=== PATIENT | female | born 1980 | race Caucasian/White ===

== ENCOUNTER 2020-05-25 09:48 | Outpatient (REF) | payer OTHER, SELFPAY | END 2020-05-25 09:49 | disposition home or self-care (01) | LOC: HO.LAB 09:48 | PROVIDERS: PCP Internal Medicine; Visit Provider Internal Medicine | DX: Z20.828 Contact with and (suspected) exposure to other viral communicable diseases (principal) | CPT/HCPCS: 87635 ==

== ENCOUNTER 2021-02-07 11:30 | Outpatient (REF) | payer OTHER, SELFPAY ==
[2021-02-07 17:31] LABS: CT PCR NOT DETECTED (Not Detect.); NG PCR NOT DETECTED (Not Detect.)
[2021-02-08 09:08] LABS: BV Int Neg Control Negative (Negative); BV Int Pos Control Positive (Positive)
[2021-02-10 01:26] LABS: HPV mRNA E6/E7 rflx Not Detected (Not Detected)
== END 2021-02-07 11:31 | disposition home or self-care (01) ==
LOC: HO.LAB 11:30
PROVIDERS: PCP Internal Medicine; Visit Provider Advanced Practice Midwife
DX: Z01.411 Encounter for gynecological examination (general) (routine) with abnormal findings (principal); Z11.51 Encounter for screening for human papillomavirus (HPV); Z11.3 Encounter for screening for infections with a predominantly sexual mode of transmission; N94.6 Dysmenorrhea, unspecified; N85.2 Hypertrophy of uterus; N92.0 Excessive and frequent menstruation with regular cycle; Z20.2 Contact with and (suspected) exposure to infections with a predominantly sexual mode of transmission
CPT/HCPCS: 87480; 87491; 87510; 87591; 87624; 87660; 88142

== ENCOUNTER 2021-02-27 11:21 | Outpatient (REF) | payer OTHER, SELFPAY ==
--- NOTE | ~2021-02-27 | US_ITS ---
EXAMINATION: ULTRASOUND PELVIS AND TRANSVAGINAL. CLINICAL INFORMATION: Transabdominal and transvaginal imaging of pelvis is performed. COMPARISON: Ultrasound pelvis 10/23/2018 TECHNIQUE: Transabdominal and transvaginal imaging of pelvis was performed. FINDINGS: The uterus is anteverted measuring 10.3 cm in length, 5.5 cm AP and 5.8 cm in transverse dimension. Endometrial thickness is 1.0 cm. The uterus is homogeneous in echotexture. No focal lesion seen. The right ovary measures 3.2 x 3.1 x 2.3 cm and volume 12 mL. There is no focal lesion seen. Previously right ovary measured 3.0 x 2.2 x 3.5 cm. Left ovary measures 2.7 x 2.5 x 1.7 cm volume 6.0 mL. Previously left ovary measured 2.8 x 3.1 x 1.8 cm. There is no free fluid in the pelvis. US/US pelvic and transvaginal IMPRESSION: Unremarkable uterus and ovaries. No free fluid in the pelvis.
== END 2021-02-27 11:22 | disposition home or self-care (01) ==
LOC: HO.US 11:21
PROVIDERS: PCP Internal Medicine; Visit Provider Advanced Practice Midwife
DX: N94.6 Dysmenorrhea, unspecified (principal); N85.2 Hypertrophy of uterus; N92.0 Excessive and frequent menstruation with regular cycle
CPT/HCPCS: 76830; 76856

== ENCOUNTER → 2021-03-06 13:43 | Outpatient (BNVA) | payer OTHER, SELFPAY | PROVIDERS: Visit Provider Advanced Practice Midwife ==

== ENCOUNTER 2021-03-14 23:19 | Emergency (ER) | payer OTHER, SELFPAY ==
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
[2021-03-14 23:33] VITALS: BP 130/96; PULSE 98; RESP 20; TEMP 36; O2SAT 98; BMI 23.9
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
[2021-03-15] MEDS: Ibuprofen 600 MG TABLET PO (01:37)
[2021-03-15] MEDS: oxyCODONE HCl Immed Release 5 MG TABLET PO (01:48)
== END 2021-03-15 01:49 | disposition home or self-care (01) ==
PROVIDERS: Emergency Provider Emergency Medicine; PCP Internal Medicine
DX: S02.2XXA Fracture of nasal bones, initial encounter for closed fracture (principal); M54.2 Cervicalgia; G44.309 Post-traumatic headache, unspecified, not intractable; Y04.8XXA Assault by other bodily force, initial encounter; Y93.9 Activity, unspecified; Y92.009 Unspecified place in unspecified non-institutional (private) residence as the place of occurrence of the external cause; Y99.9 Unspecified external cause status; F17.210 Nicotine dependence, cigarettes, uncomplicated; Z71.6 Tobacco abuse counseling; Z79.899 Other long term (current) drug therapy
CPT/HCPCS: 70450; 70486; 72125; 99283

== ENCOUNTER 2021-05-16 09:50 | Outpatient (REF) | payer OTHER, SELFPAY ==
--- NOTE | ~2021-05-16 | MM_ITS ---
EXAMINATION: MM SCREENING DIGITAL BREAST TOMOSYNTHESIS, BILATERAL CLINICAL INFORMATION: Screening. Asymptomatic. Age 41. No prior breast imaging. No known family history breast cancer. The lifetime risk of breast cancer based on the Tyrer-Cuzick Model is 8%. COMPARISON: None (current study represents initial baseline exam). TECHNIQUE: Digital breast tomosynthesis is performed in both the craniocaudal and mediolateral oblique views along with computer-aided detection (CAD). Synthesized 2D images are generated from the tomosynthesis. FINDINGS: There are scattered areas of fibroglandular density (ACR BI-RADS breast composition Category b). There are no significant masses, abnormal calcifications, or other abnormalities. Breast tissue composition borders on heterogeneously dense in the upper outer quadrants. The axilla and skin contours are unremarkable. MM/MM tomosynthesis screening BI IMPRESSION: No mammographic evidence of malignancy. ASSESSMENT: BI-RADS 1: Negative RECOMMENDATION: Routine annual mammography screening. This patient's information was entered into a reminder system with a target due date for their next mammogram.
== END 2021-05-16 09:51 | disposition home or self-care (01) ==
LOC: HO.MAMMO 09:50
PROVIDERS: PCP Internal Medicine; Visit Provider Advanced Practice Midwife
DX: Z12.31 Encounter for screening mammogram for malignant neoplasm of breast (principal)
CPT/HCPCS: 77063; 77067

== ENCOUNTER 2022-06-01 11:04 | Outpatient (REF) | payer OTHER, SELFPAY ==
--- NOTE | ~2022-06-01 | MM_ITS ---
EXAMINATION: MM SCREENING DIGITAL BREAST TOMOSYNTHESIS, BILATERAL CLINICAL INFORMATION: Screening. Asymptomatic. The lifetime risk of breast cancer based on the Tyrer-Cuzick Model is 8%. COMPARISON: Mammography: May 16, 2021 TECHNIQUE: Digital breast tomosynthesis is performed in both the craniocaudal and mediolateral oblique views along with computer-aided detection (CAD). Synthesized 2D images are generated from the tomosynthesis. FINDINGS: The breasts are heterogeneously dense, which may obscure small masses (ACR BI-RADS breast composition Category c). There are no significant masses, abnormal calcifications, or other abnormalities. MM/MM tomosynthesis screening BI IMPRESSION: No significant changes from prior exam. ASSESSMENT: BI-RADS 1: Negative RECOMMENDATION: Routine annual mammography screening. This patient's information was entered into a reminder system with a target due date for their next mammogram.
== END 2022-06-01 11:05 | disposition home or self-care (01) ==
LOC: HO.MAMMO 11:04
PROVIDERS: PCP Internal Medicine; Visit Provider Internal Medicine
DX: Z12.31 Encounter for screening mammogram for malignant neoplasm of breast (principal)
CPT/HCPCS: 77063; 77067

== ENCOUNTER → 2022-11-19 10:53 | Outpatient (BNVA) | payer OTHER, SELFPAY | PROVIDERS: Referring Provider Internal Medicine; Visit Provider Surgery | DX: L02.412 Cutaneous abscess of left axilla (principal) | CPT/HCPCS: 10060; 10061; 99202 ==

== ENCOUNTER → 2022-12-03 13:48 | Outpatient (BNVA) | payer OTHER, SELFPAY | PROVIDERS: Visit Provider Surgery ==

== ENCOUNTER → 2022-12-26 10:03 | Outpatient (BNVA) | payer OTHER, SELFPAY | PROVIDERS: Visit Provider Surgery | DX: L02.412 Cutaneous abscess of left axilla (principal) | CPT/HCPCS: 99212 ==

== ENCOUNTER 2023-12-17 12:29 | Emergency (ER) | payer OTHER, SELFPAY ==
--- NOTE | ~2023-12-17 | XR_ITS ---
EXAMINATION: XR CHEST CLINICAL INFORMATION: Shortness of breath and chest pain COMPARISON: 01/27/2018 TECHNIQUE: 2 views of the chest were obtained. FINDINGS: No significant abnormality is noted involving the heart, lungs, mediastinum, bony thorax or soft tissues. XR/XR chest 2V IMPRESSION: Unremarkable examination.
--- NOTE | 2023-12-17 12:31 | ECG_ITS ---
Test Reason : CP Blood Pressure : / mmHG Vent. Rate : 080 BPM Atrial Rate : 080 BPM P-R Int : 136 ms QRS Dur : 084 ms QT Int : 404 ms P-R-T Axes : 037 023 028 degrees QTc Int : 465 ms Normal sinus rhythm Normal ECG When compared with ECG of 31-AUG-2015 12:37, No significant change was found Referred By: Generic ED Physician Electronically Signed By:Ramin Aguilar
[2023-12-17 12:57] VITALS: BP 109/81; PULSE 73; RESP 18; TEMP 37; O2SAT 100; BMI 29.4
--- NOTE | 2023-12-17 12:58 | ED.CHESTPAIN ---
HPI - Chest Pain General Chief Complaint: Chest Pain Stated Complaint: chest pain Related Data Home Medications ?Medication ?Instructions ?Recorded ?Confirmed No Known Home Meds 03/06/21 12/26/22 Allergies Allergy/AdvReac Type Severity Reaction Status Date / Time No Known Allergies Allergy Verified 12/17/23 13:01 [No Known Allergies*] [facility] Past Medical History Medical History Abscess of left axilla Surgical History History of tubal ligation Family History Family History Father Colon cancer Mother Asthma Stomach cancer Sister Throat cancer Social History Social History Alcohol intake: current Alcohol intake frequency: holidays/special occasions only Patient Tobacco Use Status: Current everyday Tobacco user Tobacco use type: Cigarette Cigarettes Per Day: 10 Advance Directives: No Advance Directives Information Provided: No Gender identity: Female Physical Exam Vital Signs: Vital Signs: Last Vital Signs Temp 98.6 F 12/17/23 12:57 Pulse 73 12/17/23 12:57 Resp 18 12/17/23 12:57 BP 109/81 12/17/23 12:57 Pulse Ox 100 12/17/23 12:57 O2 Del Method Room Air 12/17/23 12:57 BMI result Body Mass Index 29.4 Course Course Course Narrative: This is a Rapid Medical Examination (RME) performed by Everette Driscoll PA-C in triage. Full HPI, ROS, assessment and treatment plan per primary provider in the Main ED. 43 yo female with no PMH except smoking, presenting with chest pain for past 2 months. She describes the pain as sharp, stabbing, radiating down breast, with associated SOB. She rates the pain as an 8/10. Has not taken any medication to alleviate the pain. She describes the pain as reproducible with palpation. On examination, patient is in no distress. Speaking in complete sentences. Lungs are clear to auscultation bilaterally. CV w/ RRR. Vital signs are stable. Left lateral chest wall is mildly tender without any skin changes noted. Normal inspection of her abdomen. No lower extremity edema. Low suspicion for ACS, most likely musculoskeletal in nature. Plan: EKG, chest x-ray, labs Reevaluation(s) Reevaluation #1: Patient eloped from the emergency department prior to completion of workup. Medical Decision Making Lab Data 12/17/23 13:12 12/17/23 13:12 Labs: Lab Results 12/17/23 Range/Units 13:12 WBC 12.8 H (4.8-10.8) X10*3/uL RBC 3.89 L (4.20-5.50) X10*6/uL Hgb 11.8 L (12.0-16.0) g/dl Hct 35.2 L (37.0-47.0) % MCV 90.5 (80.0-98.0) fL MCH 30.3 (27.0-33.0) pg MCHC 33.5 (31.0-35.0) g/dl RDW 15.1 (11.0-16.0) % Plt Count 277 (160-400) X10*3/uL MPV 10.2 (9.4-12.3) fL Immature Gran % (Auto) 0.9 H (0.0-0.4) % Neut % (Auto) 58.2 (45-73) % Lymph % (Auto) 28.9 (20-40) % [place] % (Auto) 8.3 (2-11) % Eos % (Auto) 3.1 (0-4) % Baso % (Auto) 0.6 (0-2) % Lymph # (Auto) 3.7 (1.2-4.9) X10*3/uL [place] # (Auto) 1.1 (0.1-1.2) X10*3/uL Eos # (Auto) 0.4 (0.0-0.4) X10*3/uL Baso # (Auto) 0.1 (0.0-0.2) X10*3/uL Abs Immat Gran (auto) 0.12 H (0.00-0.03) X10*3/uL Absolute Neuts (auto) 7.4 (2.0-8.3) x10*3/uL Absolute Nucleated RBC 0.000 (0.0-0.012) X10*3/uL Nucleated RBC % (auto) 0.0 (0.0-0.2) /100WBC Sodium 138 (135-145) mmol/L Potassium 3.8 (3.3-5.1) mmol/L Chloride 109 H (96-108) mmol/L Carbon Dioxide 19 L (22-29) mmol/L Anion Gap 14 (12-20) BUN 6 L (9-16) mg/dL Creatinine 0.68 (0.5-1.4) mg/dL Estim Creat Clear Calc 108.7 Estimated GFR > 60 Random Glucose 81 (60-115) mg/dL Calcium 9.2 (8.4-10.2) mg/dL Magnesium 2.0 (1.6-2.6) mg/dL Total Bilirubin 0.5 (0.0-1.0) mg/dL Direct Bilirubin 0.2 (0.0-0.5) mg/dL AST 15 (5-31) U/L ALT 15 (0-31) U/L Alkaline Phosphatase 70 (39-117) U/L Troponin I High Sens < 2.7 (<3.5-17.0) ng/L Total Protein 7.2 (6.5-8.0) g/dL Albumin 4.1 (3.5-5.0) g/dL Discharge Plan Discharge Clinical Impression: Chest pain Patient Disposition: Left W/O Completing Treatment Prescriptions: No Action No Known Home Meds Discharge Date/Time: 12/17/23 19:43
[2023-12-17 13:17] LABS: MANUAL DIFF FLAG NO
[2023-12-17 13:18] LABS: Basophils Absolute Auto 0.1 X10*3/uL (0.0-0.2); Basophils Percent Auto 0.6 % (0-2); Eosinophils Absolute Auto 0.4 X10*3/uL (0.0-0.4); Eosinophils Percent Auto 3.1 % (0-4); Hematocrit 35.2 % (37.0-47.0); Hemoglobin 11.8 g/dl (12.0-16.0); Imm Gran Abs Auto 0.12 X10*3/uL (0.00-0.03); Imm Gran Pct Auto 0.9 % (0.0-0.4); Lymphocytes Absolute Auto 3.7 X10*3/uL (1.2-4.9); Lymphocytes Percent Auto 28.9 % (20-40); Mean Corpuscular HGB Conc 33.5 g/dl (31.0-35.0); Mean Corpuscular Hemoglobin 30.3 pg (27.0-33.0); Mean Corpuscular Volume 90.5 fL (80.0-98.0); Mean Platelet Volume 10.2 fL (9.4-12.3); Monocytes Absolute Auto 1.1 X10*3/uL (0.1-1.2); Monocytes Percent Auto 8.3 % (2-11); Neutrophils Absolute Auto 7.4 x10*3/uL (2.0-8.3); Neutrophils Percent Auto 58.2 % (45-73); Platelet Count 277 X10*3/uL (160-400); Red Blood Count 3.89 X10*6/uL (4.20-5.50); Red Cell Distribution Width 15.1 % (11.0-16.0); White Blood Count 12.8 X10*3/uL (4.8-10.8)
[2023-12-17 13:33] LABS: Alanine Aminotransferase 15 U/L (0-31); Albumin Level 4.1 g/dL (3.5-5.0); Alkaline Phosphatase 70 U/L (39-117); Anion Gap 14 (12-20); Aspartate Amino Transferase 15 U/L (5-31); Bilirubin Direct 0.2 mg/dL (0.0-0.5); Bilirubin Total 0.5 mg/dL (0.0-1.0); Blood Urea Nitrogen 6 mg/dL (9-16); Calcium 9.2 mg/dL (8.4-10.2); Carbon Dioxide 19 mmol/L (22-29); Chloride 109 mmol/L (96-108); Creatinine Clr Calc Pharmacy 108.7; Estimated Glomerular Filt Rate > 60; Glucose Random 81 mg/dL (60-115); Potassium 3.8 mmol/L (3.3-5.1); Sodium 138 mmol/L (135-145); Total Protein 7.2 g/dL (6.5-8.0)
[2023-12-17 13:41] LABS: Troponin-I High Sensitivity < 2.7 ng/L (<3.5-17.0)
== END 2023-12-17 19:43 | disposition left against medical advice (07) ==
LOC: HO.ED 19:40
PROVIDERS: Physician Assistant; Emergency Provider Emergency Medicine
DX: R07.9 Chest pain, unspecified (principal); F17.210 Nicotine dependence, cigarettes, uncomplicated
CPT/HCPCS: 36415; 71046; 80048; 80076; 83735; 84484; 85025; 93005; 99283

== ENCOUNTER → 2023-12-17 12:31 | Outpatient (BNV) | payer OTHER, SELFPAY | PROVIDERS: Visit Provider Internal Medicine Cardiovascular Disease | DX: R07.9 Chest pain, unspecified (principal) | CPT/HCPCS: 93010 ==

== ENCOUNTER 2024-01-02 10:08 | Emergency (ER) | payer OTHER, SELFPAY ==
--- NOTE | 2024-01-02 | ECG_ITS ---
Test Reason : CP Blood Pressure : / mmHG Vent. Rate : 098 BPM Atrial Rate : 098 BPM P-R Int : 132 ms QRS Dur : 074 ms QT Int : 364 ms P-R-T Axes : 043 027 023 degrees QTc Int : 464 ms Normal sinus rhythm Possible Left atrial enlargement Borderline ECG When compared with ECG of 17-DEC-2023 12:33, No significant change was found Referred By: Generic ED Physician Electronically Signed By:BRANDI AMBROCIO MD
--- NOTE | ~2024-01-02 | XR_ITS ---
EXAMINATION: XR CHEST CLINICAL INFORMATION: Left-sided pain COMPARISON: 12/17/2023 TECHNIQUE: 2 views of the chest were obtained. FINDINGS: Lungs clear. No pneumothorax. Heart and pulmonary vessels are normal. No pleural effusion. XR/XR chest 2V IMPRESSION: No active disease.
[2024-01-02 10:37] VITALS: BP 142/99; PULSE 90; RESP 18; TEMP 36.6; O2SAT 99; BMI 29.1
[2024-01-02 10:52] LABS: MANUAL DIFF FLAG NO
[2024-01-02 10:55] LABS: Basophils Absolute Auto 0.1 X10*3/uL (0.0-0.2); Basophils Percent Auto 0.6 % (0-2); Eosinophils Absolute Auto 0.3 X10*3/uL (0.0-0.4); Eosinophils Percent Auto 2.5 % (0-4); Hematocrit 35.8 % (37.0-47.0); Hemoglobin 11.9 g/dl (12.0-16.0); Imm Gran Abs Auto 0.14 X10*3/uL (0.00-0.03); Lymphocytes Absolute Auto 3.3 X10*3/uL (1.2-4.9); Lymphocytes Percent Auto 24.8 % (20-40); Mean Corpuscular HGB Conc 33.2 g/dl (31.0-35.0); Mean Corpuscular Hemoglobin 30.3 pg (27.0-33.0); Mean Corpuscular Volume 91.1 fL (80.0-98.0); Mean Platelet Volume 10.7 fL (9.4-12.3); Monocytes Percent Auto 7.4 % (2-11); Neutrophils Absolute Auto 8.5 x10*3/uL (2.0-8.3); Neutrophils Percent Auto 63.7 % (45-73); Platelet Count 270 X10*3/uL (160-400); Red Blood Count 3.93 X10*6/uL (4.20-5.50); Red Cell Distribution Width 14.4 % (11.0-16.0); White Blood Count 13.4 X10*3/uL (4.8-10.8)
[2024-01-02 11:06] LABS: Anion Gap 12 (12-20); Blood Urea Nitrogen 10 mg/dL (9-16); Calcium 9.4 mg/dL (8.4-10.2); Carbon Dioxide 19 mmol/L (22-29); Chloride 112 mmol/L (96-108); Creatinine Clr Calc Pharmacy 102.2; Estimated Glomerular Filt Rate > 60; Glucose Random 92 mg/dL (60-115); Potassium 3.8 mmol/L (3.3-5.1); Sodium 139 mmol/L (135-145)
[2024-01-02 11:15] LABS: Troponin-I High Sensitivity < 2.7 ng/L (<3.5-17.0)
--- NOTE | 2024-01-02 12:37 | ED_ITS ---
HPI - Chest Pain General Chief Complaint: Chest Pain Stated Complaint: Chest pain, difficulty breathing Time Seen by Provider: 01/02/24 12:35 Source: patient and old records reviewed Mode of arrival: ambulatory Limitations: no limitations History of Present Illness ED Provider: ERVIN DOMINIQUE narrative: 43 yo female with PMH of dysmenorrhea here with c/o chest pain on and off x 2 weeks seen here 2 weeks ago in triage [facility] then pain came back last night her partner notes he thinks it is triggered by stress and anxiety. She is not on OCPs, no travel or recent procedures. She has no known CAD. Patient notes it hurts to move, breathe and touch her chest. She is crying and writhing on the ground. MD complaint: chest pain Onset (ago): week(s) (2) Timing of current episode: episodic Prior episodes: Yes Onset: during rest Pain location: left chest Pain radiation: left arm Severity: severe Quality: sharp Relieving factors: nothing Exacerbating factors: inspiration, palpation, movement and stress Context: other (denies illness, travel, stress) Associated symptoms: dyspnea and other (anxiety) Treatment prior to arrival: none Related Data Previous Rx's ?Medication ?Instructions ?Recorded cyclobenzaprine 10 mg tablet 10 mg PO TID PRN muscle spasm #20 01/02/24 tabs Allergies Allergy/AdvReac Type Severity Reaction Status Date / Time No Known Allergies Allergy Verified 01/02/24 10:39 [No Known Allergies*] Review of Systems 2 Review of Systems: Constitutional : No Weight loss, No Fever, No Chills ENT/Mouth : No sore throat, No Rhinorrhea Eyes: No Eye Pain, No Swelling Cardiovascular : pos Chest Pain, pos SOB, no Dyspnea on Exertion, No Orthopnea, No Edema, No Palpitations Respiratory : No Cough, No Sputum Gastrointestinal : no Nausea, No Vomiting, No Diarrhea, No abdominal Pain, No Hematochezia, No Melena Genitourinary : No Dysuria, No Urinary Frequency Musculoskeletal : No joint pain, No Myalgias, No Joint Swelling Skin : No Skin Lesions, No rash Neuro : No Weakness, No Numbness, No Dizziness, No Headache Psych : pos Anxiety/Panic, No Depression Heme/Lymph: No Bruising, No Lymphadenopathy Endocrine : No Polyuria, No Polydipsia All other systems reviewed and are negative [facility] Past Medical History Attestation statement: The following information was validated with the patient. Source: old records reviewed Medical History Abscess of left axilla Surgical History History of tubal ligation Family History Family History Father Colon cancer Mother Asthma Stomach cancer Sister Throat cancer Social History Social History Alcohol intake: current Alcohol intake frequency: holidays/special occasions only Patient Tobacco Use Status: Current everyday Tobacco user Tobacco use type: Cigarette Cigarettes Per Day: 10 Smoked in Last 30 Days: Yes Use of substances other than those prescribed or required for medical reasons: Yes Substance Use Type: Marijuana Advance Directives: No Do you have a plan to hurt others: No Plan Gender identity: Female Physical Exam 2 Vital Signs: Vital Signs: Last Vital Signs Temp 97.9 F 01/02/24 10:37 Pulse 90 01/02/24 10:37 Resp 18 01/02/24 10:37 BP 142/99 H 01/02/24 10:37 Pulse Ox 99 01/02/24 10:37 O2 Del Method Room Air 01/02/24 10:37 BMI result Body Mass Index 29.1 Appearance: Alert. Oriented X3. anxious tearful, acute distress. grabbing and holding chest Eyes: Pupils equal, round and reactive to light. ENT: Pharynx normal. Neck: Normal inspection. Neck supple. CVS: Normal heart rate and rhythm. Pulses normal. Chest: ttp along L pectoralis muscle reproduces pain then patient grabs my hand and cries Respiratory: No respiratory distress. Breath sounds normal. Abdomen: Soft and nontender. Skin: Skin warm and dry. Normal skin color. Normal skin turgor. Extremities: No lower extremity edema. No calf ttp Neuro: Oriented X 3. No motor deficit. No sensory deficit. Medications Administered Discontinued Medications Generic Name Dose Route Start Last Admin Trade Name Freq PRN Reason Stop Dose Admin Ketorolac Tromethamine 15 mg 01/02/24 12:53 01/02/24 13:00 Ketorolac Tromethamine 15 Mg/Ml Vial IVPUSH 01/02/24 12:54 15 mg ONCE ONE Administration Lorazepam 1 mg 01/02/24 12:53 01/02/24 13:01 Lorazepam 2 Mg/Ml Vial IVPUSH 01/02/24 12:54 1 mg STAT STA Administration Medical Decision Making Medical Decision Making [facility] Narrative: 43 yo female with PMH of dysmenorrhea here with c/o chest pain x 2 weeks worse since last night she is not on OCPs, PERC negative, distal pulses intact doubt dissection. EKG unchanged from last it is very reproduceable seems atypical for ACS, will obtain labs, EKG, CXR, troponin. Differential Diagnosis Differential Diagnoses: The differential diagnosis associated with the presentation includes chest wall pain, anxiety, atypical chest pain, low prob VTE Admission/Observation Consideration of admission/observation: Escalation of care including admission/observation considered work up negative improved with ativan stable for DC Lab Data [facility] Lab Attestation statement: I reviewed the patient's lab results. 01/02/24 10:47 01/02/24 10:47 Labs: Lab Results 01/02/24 01/02/24 Range/Units 10:47 13:11 WBC 13.4 H (4.8-10.8) X10*3/uL RBC 3.93 L (4.20-5.50) X10*6/uL Hgb 11.9 L (12.0-16.0) g/dl Hct 35.8 L (37.0-47.0) % MCV 91.1 (80.0-98.0) fL MCH 30.3 (27.0-33.0) pg MCHC 33.2 (31.0-35.0) g/dl RDW 14.4 (11.0-16.0) % Plt Count 270 (160-400) X10*3/uL MPV 10.7 (9.4-12.3) fL Immature Gran % (Auto) 1.0 H (0.0-0.4) % Neut % (Auto) 63.7 (45-73) % Lymph % (Auto) 24.8 (20-40) % [place] % (Auto) 7.4 (2-11) % Eos % (Auto) 2.5 (0-4) % Baso % (Auto) 0.6 (0-2) % Lymph # (Auto) 3.3 (1.2-4.9) X10*3/uL [place] # (Auto) 1.0 (0.1-1.2) X10*3/uL Eos # (Auto) 0.3 (0.0-0.4) X10*3/uL Baso # (Auto) 0.1 (0.0-0.2) X10*3/uL Abs Immat Gran (auto) 0.14 H (0.00-0.03) X10*3/uL Absolute Neuts (auto) 8.5 H (2.0-8.3) x10*3/uL Absolute Nucleated RBC 0.000 (0.0-0.012) X10*3/uL Nucleated RBC % (auto) 0.0 (0.0-0.2) /100WBC D-Dimer High Sensitivty < 150 NG/ML Sodium 139 (135-145) mmol/L Potassium 3.8 (3.3-5.1) mmol/L Chloride 112 H (96-108) mmol/L Carbon Dioxide 19 L (22-29) mmol/L Anion Gap 12 (12-20) BUN 10 (9-16) mg/dL Creatinine 0.72 (0.5-1.4) mg/dL Estim Creat Clear Calc 102.2 Estimated GFR > 60 Random Glucose 92 (60-115) mg/dL Calcium 9.4 (8.4-10.2) mg/dL Troponin I High Sens < 2.7 (<3.5-17.0) ng/L Independent Interpretation I performed an independent interpretation of an: EKG and Plain X-Ray (normal ) Interpretation: Rate: 98 Rhythm: NSR [place]: normal Normal P waves. Normal [place]. Normal QRS complex. ST T wave : inverted t wave V1 and III, no JHONY qTC: normal prior studies: no change from prior The study has been interpreted contemporaneously by me. . Radiology Impression Discussion of test interpretation with radiology: I have reviewed the radiologist's reading. Independent Historian Clinical information obtained from an independent historian. History obtained from or confirmed by: Spouse External Record Review External record reviewed: Inpatient record Prescription Management I considered prescription management with: Other Discharge Plan Discharge Clinical Impression: Atypical chest pain, Acute chest wall pain Patient Disposition: Home, Self-Care Instructions: Chest Pain (ED) Additional Instructions: test for heart, EKG, chest xray reassuring. test for blood clot negative. make sure you follow up with your doctor to repeat stress test in the next couple of weeks return for any worsening symptoms or concerns. Prescriptions: New cyclobenzaprine 10 mg tablet 10 mg PO TID PRN (Reason: muscle spasm) Qty: 20 0RF Stand Alone Forms: Work/School Release Print Language: Romanian
[2024-01-02] MEDS: Ketorolac Tromethamine 15 MG/ML VIAL IVPUSH (13:00)
[2024-01-02] MEDS: LORazepam 2 MG/ML VIAL 1 MG IVPUSH (13:01)
[2024-01-02 13:35] LABS: D Dimer High Sensitivity < 150 NG/ML
--- NOTE | 2024-01-02 13:57 | PC.NURSE ---
pt reports decreased pain in her chest. now a 2 or 3 out of ten. No longer sharp and stabbing. Pt denies current stresses in life and says she does not feel especially anxious or stressed at home.
[2024-01-02 14:24] VITALS: BP 124/87; PULSE 77; RESP 12; TEMP 36.9; O2SAT 97
== END 2024-01-02 14:25 | disposition home or self-care (01) ==
PROVIDERS: Emergency Provider Emergency Medicine
DX: R07.89 Other chest pain (principal)
CPT/HCPCS: 36415; 71046; 80048; 84484; 85025; 85379; 93005; 96374; 96375; 99284; J1885; J2060

== ENCOUNTER → 2024-01-02 10:10 | Outpatient (BNV) | payer OTHER, SELFPAY | PROVIDERS: Visit Provider Internal Medicine Cardiovascular Disease | DX: R07.9 Chest pain, unspecified (principal) | CPT/HCPCS: 93010 ==

== ENCOUNTER 2024-02-19 15:10 | Outpatient (AMB) | payer OTHER, SELFPAY ==
--- NOTE | 2024-02-19 15:12 | MHC.OFFVIS ---
Vital Signs 02/19/24 15:13 Height 5 ft 4 in Weight 167 lb 8.821 oz BMI 28.8 BP 106/60 Blood Pressure Location Lt brachial Position Sitting Pulse 101 H Pulse Source Monitor Intake Visit Reasons: [facility] Follow up- Chest pain, difficulty breathing Allergies No Known Allergies [No Known Allergies*] Allergy (Verified 01/02/24 10:39) Medication List - Last Reconciled 02/19/24 by Simran Steiner NP cyclobenzaprine 10 mg PO TID PRN HPI Comments Details: 43-year-old female presents today for a new patient visit. She was in the emergency department for chest pains on 12/27/23 and 12/17/2023. She reports this chest pain is left sided and increases in intensity when breathing. It is pressure and stabbing-like. She was prescribed cyclobenzaprine which has not helped. She has had chest pains in the past and had a stress test in 2017 which was normal. She has no significant medical history and no known cardiac family history. She does report alcohol use, marijuana use, and smoking cigarettes. [facility] Medical History (Updated 02/21/24 @ 09:02 by Simran Steiner NP) Shortness of breath on exertion Abscess of left axilla Surgical History History of tubal ligation Family History Father Colon cancer Mother Asthma Stomach cancer Sister Throat cancer Social History Alcohol intake: current Alcohol intake frequency: a few times a week Patient Tobacco Use Status: Current everyday Tobacco user Tobacco use type: Cigarette Cigarettes Per Day: 10 Substance Use Type: Marijuana Gender identity: Female Female Reproductive History Menstrual Age of Menarche: 13 Review of Systems Const Denies weakness ENT Denies dizziness Card Reports chest pain, Reports chest pain at rest, Reports chest pain with activity, Denies syncope, Denies rapid heart rate, Denies pedal edema, Denies edema, Denies leg edema, Denies lightheadedness, Denies palpitations, Denies dyspnea, Denies dyspnea on exertion and Denies orthopnea Resp Denies cough, Denies dyspnea and Denies dyspnea on exertion GI Denies hematochezia and Denies change in stool character Musc Denies abnormal gait, Denies muscle cramps, Denies muscle weakness, Denies numbness, Denies radiating pain into limb and Denies tingling Neuro Denies abnormal gait, Denies dizziness, Denies syncope, Denies numbness, Denies tingling and Denies weakness Endo Denies palpitations Physical Exam Vital Signs: Last Vital Signs Pulse 101 H 02/19/24 15:13 BP 106/60 02/19/24 15:13 BMI result Body Mass Index 28.8 Office Procedures EKG Details: EKG today. Sinus Tachycardia. Rate 101 bpm. T wave abnormality, consider inferior ischemia. QRS 80ms. QTc 446 ms. NM 118 ms. [id number], Complete Assessment & Plan Assessment & Plan (1) Chest pain: Code(s): R07.9 - Chest pain, unspecified Category: Medical (2) Shortness of breath on exertion: Code(s): R06.02 - Shortness of breath Category: Medical Plan Chest pains happening at rest and short of breath on exertion. Described as stabbing and pressure radiating to the neck. Current everyday smoker. Stress test in 2017 was within normal limits. Will do stress echocardiogram and echocardiogram to assess for any changes, Signs of angina reviewed. ED care if needed. Orders: Orders CA echo transthoracic complete 02/19/24 R06.02 - Shortness of breath, R07.9 - Chest pain, unspecified CA echo stress exercise w con 02/19/24 R06.02 - Shortness of breath, R07.9 - Chest pain, unspecified Coding Level of Care Code New Pt Level 4 (25465) Diagnoses Chest pain R07.9 Shortness of breath on exertion R06.02 CPT Codes EKG - CPT: 08714-[id number], Complete ([id number])
[2024-02-19 15:13] VITALS: BP 106/60; PULSE 101; BMI 28.8
== END 2024-02-19 15:54 | disposition home or self-care (01) ==
PROVIDERS: Visit Provider Nurse Practitioner
DX: R07.9 Chest pain, unspecified (principal); R06.02 Shortness of breath
CPT/HCPCS: 93010; 99214

== ENCOUNTER → 2024-02-19 15:10 | Outpatient (BNVA) | payer OTHER, SELFPAY | PROVIDERS: Visit Provider Nurse Practitioner | DX: R07.9 Chest pain, unspecified (principal); R06.02 Shortness of breath | CPT/HCPCS: 93005; 99212 ==

== ENCOUNTER → 2024-03-06 09:50 | Outpatient (REF) | payer OTHER, SELFPAY ==
--- NOTE | 2024-03-06 09:52 | CA_ITS ---
Transthoracic Echocardiogram Patient (Last, First, Middle): Maite Nunez, Gender: Female Date of : 1980 Age: 43 Procedure Date: 03/06/2024 Procedure Type: Transthoracic Echocardiogram Location: OP Height: 162.56 cm Weight: 74.84 kg BSA: 1.80 m2 Heart Rate: 86 bpm BP: 110 / 60 mmHg Account Strategist: MARILIA Referring MD: Simran Steiner WOUND SPECIALIST Symptoms: R07.9 - Chest pain, unspecified Study Quality: Fair ECG Rhythm: Sinus Conclusions: - The left ventricular systolic function is normal. The calculated ejection fraction is 56% by biplane method. - No obvious valvular pathology seen on this study. Findings Left Ventricle Normal left ventricular cavity size. There is normal left ventricular wall thickness. The left ventricular systolic function is normal. The calculated ejection fraction is 56% by biplane method. There is no evidence of regional wall motion abnormalities. Diastolic function is normal for age. LV peak GLS -14.8%, mildly reduced. Right Ventricle Normal right ventricular cavity size and systolic function. Atria Both atria are normal in size. Aortic Valve There is a normal trileaflet aortic valve. There is no aortic valve stenosis. There is no aortic valve regurgitation. Mitral Valve The mitral valve appears normal. There is trace mitral valve regurgitation. There is no mitral valve stenosis. Pulmonic Valve The pulmonic valve is likely normal. Tricuspid Valve Normal tricuspid valve structure. There is trace tricuspid valve regurgitation. There is no evidence of pulmonary hypertension. Great Vessels The asc aorta is normal in size. Venous The inferior vena cava is normal in size and collapses greater than 50% with inspiration. Pericardium/Pleural There is no evidence of pericardial effusion. Prior Study Comparison No significant change compared to prior study dated: 10/30/2016. Recommendations, Care & Conclusions No obvious valvular pathology seen on this study. Measurements 2D Linear Measurements IVSd: 0.99 0.6-0.9/0.6-1.0 cm LVIDd: 4.64 3.9-5.3/4.2-5.9 cm LVIDd Index: 2.58 2.4-3.2/2.2-3.1 cm/m2 LVIDs: 3.20 2.0-3.6 cm LVPWd: 0.89 0.7-1.1 cm LA Diam: 3.00 2.7-3.8/3.0-4.0 cm LAIDs Index: 1.67 1.5-2.3 cm/m2 LV Mass: 184.36 67-162/88-224 g LV Mass Index: 102.42 43-95/49-115 g/m2 LVOT Diam: 2.10 3.0+(-)1.3 cm 2D Systolic Function EF 4C: 55.30 >55% EF 2C: 57.60 >55% EF BiP: 56.20 >55% Mitral Valve MV Pk E: 0.95 MV PK A: 0.83 MV Decel Time: 157.00 E/A: 1.20 E'Lateral: 13.10 E'Medial: 8.05 E/E' Med: 11.80 E/E' Lat: 7.30 PHT: 46.00 MVA PHT: 4.78 Decel Kimball: 6.04 Aortic Valve AoV Pk Sudeep: 1.09 AoV Mn Sudeep: 0.85 AoV VTI: 0.25 AoV Pk Grad: 5.00 Aov Mn Grad: 3.00 CARMEN Cont.VTI: 2.37 LVOT LVOT Pk Sudeep: 0.94 LVOT Mn Sudeep: 0.65 LVOT VTI: 0.17 LVOT Pk Grad: 4.00 LVOT Mn Grad: 2.00 LVOT Diam: 2.10 LVOT Area: 3.46 Diastolic Function MV Pk E: 0.95 MV Pk A: 0.83 E/A: 1.20 E'Medial: 8.05 E/E' Med: 11.80 E' Laterial: 13.10 E/E' Lat: 7.30 Right Ventricle TAPSE (mm): 20.00 TVS' Sudeep: 11.60 Tricuspid Valve TR Pk Sudeep: 1.77 TR Pk Grad: 13.00 Great Vessels Aorta Sinus of Valsalva: 3.60 2.0-3.5 cm Ao Asc: 3.20 2.1-3.4 cm Pulmonary Valve PV Pk Sudeep: 0.71 Peak PV Grad: 2.00 Updated in Other Vendor System with Status of Final Brando Pop MD electronically signed on 03/07/2024 12:06:55 PM with status of Final
== END ==
LOC: HO.CARD 09:50
PROVIDERS: Visit Provider Nurse Practitioner
DX: R07.9 Chest pain, unspecified (principal); R06.02 Shortness of breath
CPT/HCPCS: 93306; 93356

== ENCOUNTER → 2024-03-06 09:52 | Outpatient (BNV) | payer OTHER, SELFPAY | PROVIDERS: Visit Provider Internal Medicine | DX: R07.9 Chest pain, unspecified (principal); R93.1 Abnormal findings on diagnostic imaging of heart and coronary circulation | CPT/HCPCS: 93306; 93356 ==

== ENCOUNTER → 2024-06-11 10:55 | Outpatient (REF) | payer OTHER, SELFPAY ==
--- NOTE | 2024-06-11 10:58 | CA_ITS ---
Acquisition Time: 2024-06-11 10:53:26 Total Exercise Time: 00:06:26 Test Indications: Dyspnea Medications: CYCLOBENZAPRINE Protocol: KAREN Max HR: 160 BPM 90% of Pred: 177 BPM Max BP: 160/080 mmHG Max Work Load: 7.6 METS Exercise stress test with exercise 6 min 26 sec of Karen protocol, achieving 90% MPHR, with report of sudden sharp left lateral CP that caused her to jump to the side of tread and stop exercise, without arrythmia, with normotensive response to exercise, without EKG changes meeting criteria for ischemia, Her CP resolved quickly, atypical for angina. Echo images obtained by tech at rest and immediately post peak exercise. Heart rate noted to correct quickly. Definity contrast used. Test reviewed with Dr Pop Referred By: Simran Steiner Overread By: NIRMAL HOSKINS
== END ==
LOC: HO.CARD 10:55
PROVIDERS: Visit Provider Nurse Practitioner
DX: R07.9 Chest pain, unspecified (principal); R06.02 Shortness of breath
CPT/HCPCS: 93350; Q9957

== ENCOUNTER → 2024-06-11 10:58 | Outpatient (BNV) | payer OTHER, SELFPAY | PROVIDERS: Visit Provider Nurse Practitioner Family | DX: R07.9 Chest pain, unspecified (principal) | CPT/HCPCS: 93016; 93018; 93350; 93352 ==

== ENCOUNTER 2024-06-22 14:57 | Outpatient (AMB) | payer OTHER, SELFPAY ==
[2024-06-22 15:20] VITALS: BP 114/72; PULSE 92; BMI 28.6
--- NOTE | 2024-06-22 15:20 | A.OFFVIS_ITS ---
Vital Signs 06/22/24 15:20 Height 5 ft 4 in Weight 166 lb 10.711 oz BMI 28.6 BP 114/72 Blood Pressure Location Rt brachial Position Sitting Pulse 92 Pulse Source Pulse Oximeter Intake Visit Reasons: f/up echo/ stress echo Paid Search Manager Required: No Sugarcane Research Technician: Sugarcane Research Technician Present Allergies No Known Allergies [No Known Allergies*] Allergy (Verified 06/22/24 15:22) Medication List - Last Reconciled 06/22/24 by Kym Vinson NP-C cyclobenzaprine 10 mg PO TID PRN HPI HPI f/up echo/ stress echo: Details: Maite is a 44-year-old female with past medical history of smoking who recently reported atypical chest discomfort and underwent an echocardiogram and exercise stress echocardiogram and now presents for follow-up. Today she reports that she still gets her left lateral chest discomfort. She describes it to me as sharp stabbing to her left lateral breast region. It can happen without warning, last a few seconds and occur several times in a day. It has been brought on with body movements and deep breathing or laughing. When the pain occurs she said it is painful to breathe in. Afterwards she will notice an ache in that region. She has no tenderness to palpation. Pain not clearly brought on by just walking or stair climbing. She does get some shortness of breath with exertion which she relates to smoking. No palpitations, lightheadedness, presyncope, syncope. Significant other is present. Continues to smoke daily. [facility] Medical History Shortness of breath on exertion Abscess of left axilla Surgical History History of tubal ligation Family History Father Colon cancer Mother Asthma Stomach cancer Sister Throat cancer Social History Alcohol intake: current Alcohol intake frequency: a few times a week Patient Tobacco Use Status: Current everyday Tobacco user Tobacco use type: Cigarette Cigarettes Per Day: 10 Substance Use Type: Marijuana Gender identity: Female Female Reproductive History Menstrual Age of Menarche: 13 Review of Systems Const All systems reviewed & are unremarkable except as noted in HPI and below ENT Denies dizziness Card Reports chest pain (left lateral chest), Denies chest pain at rest, Denies chest pain with activity, Denies rapid heart rate, Denies pedal edema, Denies edema, Denies leg edema, Denies lightheadedness, Denies palpitations, Denies dyspnea, Denies dyspnea on exertion and Denies orthopnea Resp Denies cough, Denies dyspnea and Denies dyspnea on exertion GI Denies hematochezia and Denies change in stool character Musc Denies abnormal gait, Denies limited range of motion, Denies muscle cramps, Denies muscle weakness, Denies numbness, Denies radiating pain into limb, Denies stiffness and Denies tingling Neuro Denies abnormal gait, Denies dizziness, Denies numbness and Denies tingling Endo Denies palpitations Physical Exam Vital Signs: Last Vital Signs Pulse 92 06/22/24 15:20 BP 114/72 06/22/24 15:20 BMI result Body Mass Index 28.6 Const General: cooperative, healthy appearing, comfortable and no acute distress Orientation/consciousness: patient oriented x3 Neck Neck: Yes normal visual inspection Resp Effort & Inspection: normal respiratory effort Auscultation: clear to auscultation bilaterally, no rales, no rhonchi and no wheezes Cardio Rate: regular rate Rhythm: regular rhythm Heart sounds: S1 normal heart sound present, S2 normal heart sound present, no murmurs and no rubs Neuro General: patient oriented x3 Extrem General: Yes normal to inspection Psych Appearance: grossly normal Mental Status: mental status grossly normal Speech and movement: Normal speech and movement present Assessment & Plan Assessment & Plan (1) Chest pain: Code(s): R07.9 - Chest pain, unspecified Category: Medical Plan: Atypical chest discomfort with prior ER evaluation December 2023 without cardiac findings. She was referred to Cardiology for further evaluation. An echocardiogram was done on 03/06/2024 showing EF 56%, no valve abnormalities, no regional wall motion abnormality. A stress echocardiogram was done on 06/11/2024 with exercise 6.5 minutes with report of her sudden sharp left lateral discomfort lasting seconds without EKG changes and no echo evidence of ischemia, diastolic dysfunction or pulmonary hypertension. Test results reviewed with her in detail. Informed her that there is no evidence that her discomfort is cardiac in nature. Spent time reviewing signs and symptoms of true angina. Informed her that her symptom is most likely chest wall in nature. It is also in her lateral breast region however no palpable masses identified by me. She says she had a mammogram 2 years ago that was normal. She currently does not have a PCP. Informed her that when she gets a new PCP this can be further discussed with that provider at that time. Recommended mammograms yearly per standard. Suggested she do exercises and stretching of her chest muscles to see if that can help to relieve this symptom.. Cardiology follow-up will be p.r.n.. (2) Shortness of breath on exertion: Code(s): R06.02 - Shortness of breath Category: Medical Plan: She reports some shortness of breath with exertion. Patient is a smoker which likely contributes. Stress echo was normal. (3) Smoker: Code(s): F17.200 - Nicotine dependence, unspecified, uncomplicated Category: Social Hx Plan: Discussed cessation. She says she will work on this going forward. Plan Time spent on chart review, documentation, interview and assessment Coding Level of Care Code Est Pt Level 4 (12713) Complex EM visit Add On G2211 Diagnoses Chest pain R07.9 Shortness of breath on exertion R06.02 Smoker F17.200 Time Spent (min) 28
== END 2024-06-22 15:53 | disposition home or self-care (01) ==
PROVIDERS: Visit Provider Nurse Practitioner Family
DX: R07.9 Chest pain, unspecified (principal); R06.02 Shortness of breath; F17.200 Nicotine dependence, unspecified, uncomplicated
CPT/HCPCS: 99214; G2211

== ENCOUNTER → 2024-06-22 14:57 | Outpatient (BNVA) | payer OTHER, SELFPAY | PROVIDERS: Visit Provider Nurse Practitioner Family | DX: R07.9 Chest pain, unspecified (principal); R06.02 Shortness of breath; F17.210 Nicotine dependence, cigarettes, uncomplicated | CPT/HCPCS: 99212 ==

== ENCOUNTER 2024-09-10 10:49 | Emergency (ER) | payer OTHER, SELFPAY ==
--- NOTE | ~2024-09-10 | CT_ITS ---
CLINICAL HISTORY: RLQ pain, guarding CT abdomen and pelvis with contrast Comparison: 10/05/2018 Findings: The lung bases are clear. The appearance of the liver suggests fatty infiltration without focal lesion. The gallbladder and solid organs are otherwise within normal limits. No renal stones. No bowel obstruction, pneumoperitoneum, or pneumatosis. There is a possible right ovarian cyst. Pelvic contents are otherwise unremarkable. Normal appendix. The bones are intact. IMPRESSION: Hepatic steatosis. This document has been electronically signed by: Romaine Hernández MD on 09/10/2024 19:12:44
--- NOTE | ~2024-09-10 | US_ITS ---
EXAMINATION: US PELVIS CLINICAL INFORMATION: Right pelvic pain COMPARISON: Ultrasound pelvis 08/30/2020 TECHNIQUE: Ultrasound of the pelvis is performed using both transabdominal and transvaginal transducers along with Doppler. Transvaginal imaging is performed due to inadequate visualization transabdominally. FINDINGS: Uterus: The uterus is anteverted, anteflexed and measures 9.8 x 4.5 x 5.9 cm. The double wall endometrial thickness is 1.4 cm. The uterus is smooth in contour and has normal myometrial echogenicity. No visible fibroid. There are small nabothian cyst seen in the cervix. Adnexa: Both ovaries are visualized. There is normal color flow to the adnexa. There is no ovarian torsion. There is no pelvic ascites or fluid collection. Right ovary measures 2.2 x 2.0 x 2.4 cm. Volume 5.5 mL. There is anechoic cyst measuring 1.7 x 0.90 x 0.84 cm. There is trace free fluid adjacent to the right ovary. Previously right ovary measured 3.2 x 3.1 x 2.3 cm. Left ovary measures 3.4 x 2.0 x 2.1 cm. Volume 7.5 mL . No focal lesion seen. Previously left ovary measured 2.7 x 2.5 and 1.7 cm. US/US pelvic and transvaginal IMPRESSION: Unremarkable uterus. Small nabothian cysts in cervix. Small right ovarian cysts measuring 1.7 cm. Electronically signed by: Anish Garcia MD 09/10/2024 02:30 PM [facility] [place]
--- NOTE | 2024-09-10 11:30 | ED_ITS ---
HPI - General Adult General Chief complaint: Abdominal Pain Stated complaint: Pelvic pain Time Seen by Provider: 09/10/24 15:18 Source: patient and family () Mode of arrival: ambulatory Limitations: no limitations History of Present Illness ED Provider: SHAWNA CHAVEZ PA-C HPI narrative: 44-year-old female presents to the ED today for evaluation of RLQ abdominal pain x24 hours. Pain is localized to her right lower quadrant and has been constant since onset. Described as a sharp pain that waxes and wanes in intensity. No radiation. Pain is worse with certain movements, going from seated to standing position, ambulating, palpating the area. She was evaluated at urgent care and advised to come to the emergency department due to concern for acute appendicitis. Reports remote history of ovarian cysts. Her LMP was 2 weeks ago. she is in a monogamous relationship and sexually active with her only. Pertinent surgical history includes bilateral tubal ligation in 2002. Denies fever, chills, decreased appetite, nausea, vomiting, diarrhea, flank pain, dysuria, hematuria, vaginal pain, discharge or bleeding. Related Data Previous Rx's ?Medication ?Instructions ?Recorded cyclobenzaprine 10 mg tablet 10 mg PO TID PRN muscle spasm #20 01/02/24 tabs indomethacin 25 mg capsule 25 mg PO TID PRN pain (scale score 09/10/24 4-6) #20 caps Allergies Allergy/AdvReac Type Severity Reaction Status Date / Time No Known Allergies Allergy Verified 09/10/24 11:32 [No Known Allergies*] Review of Systems 2 Review of Systems: Constitutional: No fever, chills, fatigue, night sweats, weight changes ENT/Mouth: No ear pain, hearing loss, nasal congestion, sinus pain, rhinorrhea, sore throat Eyes: No eye pain, swelling, redness, vision changes, discharge Cardio: No chest pain, palpitations, RAHMAN, orthopnea, peripheral edema Pulm: No SOB, cough, sputum, wheezing, dyspnea, hemoptysis GI: No nausea, vomiting, hematemesis, diarrhea, constipation, hematochezia, melena, +RLQ abd pain : No irregular bleeding, dysuria, frequency, urgency, hesitancy, hematuria, flank pain, urinary flow changes, urinary incontinence or retention MSK: No back pain, neck pain, joint pain, myalgias Skin: No lesions, rashes Neuro: No weakness, numbness, paresthesias, LOC, dizziness, headache Psych: No anxiety/panic, depression, SI/HI, AH/VH All other systems reviewed and are negative. [facility] Past Medical History Attestation statement: The following information was validated with the patient. Source: old records reviewed and nursing notes reviewed Medical History Shortness of breath on exertion Abscess of left axilla Surgical History History of tubal ligation Family History Family History Father Colon cancer Mother Asthma Stomach cancer Sister Throat cancer Social History Social History Alcohol intake: current Alcohol intake frequency: a few times a week Patient Tobacco Use Status: Current everyday Tobacco user Tobacco use type: Cigarette Cigarettes Per Day: 10 Substance Use Type: Marijuana Advance Directives: No Advance Directives Information Provided: Yes Gender identity: Female Physical Exam ED Vital Signs: Vital Signs - 24 hr 09/10/24 11:31 09/10/24 16:11 09/10/24 18:43 Temperature 98.2 F 97.8 F 98.4 F Pulse Rate 83 79 80 Respiratory Rate 16 16 18 Blood Pressure 127/88 110/86 123/75 Pulse Oximetry 100 99 99 Oxygen Delivery Method Room Air Room Air Room Air 09/10/24 19:57 Temperature 98.4 F Pulse Rate 80 Respiratory Rate 18 Blood Pressure 123/75 Pulse Oximetry 99 Oxygen Delivery Method Room Air BMI result Body Mass Index 28.4 Vital signs stable, afebrile General: Well appearing, in no acute distress. Skin: Warm, dry, intact. No rashes or lesions. Head: Normocephalic, atraumatic. EENT: Hearing is intact b/l. Conjunctiva clear. Sclera is anicteric. PERRLA. EOM intact. Moist mucous membranes.? Neck: Supple without LAD. Cardiac: Chest wall symmetric. RRR Lungs: Normal respiratory effort without accessory muscle use. CTA bilaterally. Abdomen: Obese abdomen, soft, nondistended, tender to palpation of right lower quadrant with deep palpation, voluntary guarding. No rebound tenderness. Positive McBurney point tenderness. Negative Rovsing sign. negative psoas sign. normoactive bs x4. Pelvic exam: deferred per patient Back: No midline spinous or paraspinal tenderness. No step off deformity. Ext: Upper and lower extremities atraumatic, without tenderness, deformity, swelling or erythema Neuro: AOx3. Normal speech. Ambulating with steady gait. Psych: Appropriate mood and affect. Responds appropriately to questions. Course Course Course Narrative: RME, this is a rapid medical exam performed by Lane Ojeda please refer to primary provider for complete H&P- 44-year-old female presents for evaluation of right lower abdominal pain/pelvic pain that started yesterday. She was seen at urgent care and sent here to evaluate for acute appendicitis/ovarian cyst. Plan for labs, urinalysis. Will defer advanced imaging to primary ER provider Reevaluation(s) Reevaluation #1: 1626 -- CBC with slight leukocytosis to 11.5 without left shift. Chemistry without acute electrolyte abnormality requiring intervention. No PB. Liver function WNL. Lipase WNL. Beta HCG undetectable. pelvic ultrasound showing small nabothian cysts within the cervix and small right ovarian cyst measuring 1.7 cm. No evidence of ovarian torsion. awaiting UA. > given tenderness of right lower quadrant, I cannot completely r/o appendicitis. CT scan abdomen/pelvis with contrast ordered. Morphine ordered for pain control. will continue to monitor. 1849 -- UA without infection. patient still endorsing 7/10 pain after morphine administration. will trial dose of dilaudid. ct still pending. 1923 -- CT abdomen/pelvis shows right ovarian cyst. Normal appendix. No free fluid within the pelvis. No bowel obstruction. Only significant finding is hepatic steatosis. > discussed all workup results with patient. Her last gynecologic exam was in 2020. Although she is not endorsing any concerns of vaginal discharge/pain or vaginal bleeding, I did offer pelvic exam to further evaluate pain and to obtain vaginal swabs for BV, trichomonas, CT/NG. I explained this would allow me to rule out differentials such as STIs/ PID. Patient is declining pelvic exam/ swabs at this time. She tells me that her menstrual periods typically involve very heavy vaginal bleeding with clots, along with associated severe abdominal cramping. she states her previous provider mentioned that she should be worked up for endometriosis however she did not follow up with this. It was possible that her pain is secondary to endometriosis however I explained that there is no way for us to see this on imaging. She does have a small right ovarian cyst however this is unlikely to be causing her pain and there is no evidence of ovarian torsion. > I advised NSAIDs for pain control at home. indomethacin sent to pharmacy. I have also provided her with OBGYN referral and advised her to contact their office tomorrow morning. Patient has remained stable throughout ED visit today. Discussed worrisome signs and symptoms and when to return to the ED. All questions answered at this time. Patient is agreeable with disposition and stable for discharge. Medications Administered Discontinued Medications Generic Name Dose Route Start Last Admin Trade Name Raiza PRN Reason Stop Dose Admin Hydromorphone HCl 1 mg 09/10/24 18:41 09/10/24 18:50 Hydromorphone Hcl 1 Mg/Ml Syringe IVPUSH 09/10/24 18:42 1 mg ONCE ONE Administration Protocol Iohexol 85 ml 09/10/24 17:26 09/10/24 17:26 Iohexol 350 Mg/Ml 100 Ml Infus..Btl IV 09/10/24 17:27 85 ml ONCE ONE Administration Morphine Sulfate 4 mg 09/10/24 16:20 09/10/24 16:37 Morphine Sulfate 4 Mg/Ml Cartridge IVPUSH 09/10/24 16:21 4 mg ONCE ONE Administration Protocol Ondansetron HCl 4 mg 09/10/24 19:23 09/10/24 19:31 Ondansetron Hcl 4 Mg/2 Ml Vial IVPUSH 09/10/24 19:24 4 mg ONCE ONE Administration Medical Decision Making Medical Decision Making MDM Narrative: 44-year-old female presents to the ED today for evaluation of RLQ abdominal pain x24 hours. vital signs stable, afebrile. she is nontoxic appearing and in NAD. appears uncomfortable when transitioning from lying to seated position. on exam, Obese abdomen, soft, nondistended, tender to palpation of right lower quadrant with deep palpation, voluntary guarding. No rebound tenderness. Positive McBurney point tenderness. Negative Rovsing sign. negative psoas sign. normoactive bs x4. Differential diagnoses: appendicitis, diverticulitis, diverticulosis, UTI, IUP, ovarian cyst Abdominal exam without peritoneal signs. Low suspicion for acute hepatobiliary disease (including acute cholecystitis), acute infectious processes (pneumonia, hepatitis, pyelonephritis, PID, TOA), vascular catastrophe, bowel obstruction or viscus perforation, ovarian rupture/ torsion, ectopic Plan: labs, UA, pelvic US, CT AP, pain control, serial reassessment Differential Diagnosis Differential Diagnoses: The differential diagnosis associated with the presentation includes as above. Admission/Observation Consideration of admission/observation: Escalation of care including admission/observation considered admission considered on presentation Lab Data MDM Lab Attestation statement: I reviewed the patient's lab results. as above. 09/10/24 11:58 09/10/24 11:58 Labs: Lab Results 09/10/24 09/10/24 Range/Units 11:58 18:34 WBC 11.5 H (4.8-10.8) X10*3/uL RBC 4.14 L (4.20-5.50) X10*6/uL Hgb 12.0 (12.0-16.0) g/dl Hct 36.1 L (37.0-47.0) % MCV 87.2 (80.0-98.0) fL MCH 29.0 (27.0-33.0) pg MCHC 33.2 (31.0-35.0) g/dl RDW 15.6 (11.0-16.0) % Plt Count 274 (160-400) X10*3/uL MPV 10.5 (9.4-12.3) fL Immature Gran % (Auto) 1.0 H (0.0-0.4) % Neut % (Auto) 62.6 (45-73) % Lymph % (Auto) 25.4 (20-40) % [place] % (Auto) 7.8 (2-11) % Eos % (Auto) 2.7 (0-4) % Baso % (Auto) 0.5 (0-2) % Lymph # (Auto) 2.9 (1.2-4.9) X10*3/uL [place] # (Auto) 0.9 (0.1-1.2) X10*3/uL Eos # (Auto) 0.3 (0.0-0.4) X10*3/uL Baso # (Auto) 0.1 (0.0-0.2) X10*3/uL Abs Immat Gran (auto) 0.11 H (0.00-0.03) X10*3/uL Absolute Neuts (auto) 7.2 (2.0-8.3) x10*3/uL Absolute Nucleated RBC 0.000 (0.0-0.012) X10*3/uL Nucleated RBC % (auto) 0.0 (0.0-0.2) /100WBC Sodium 140 (135-145) mmol/L Potassium 4.3 (3.3-5.1) mmol/L Chloride 113 H (96-108) mmol/L Carbon Dioxide 22 (22-29) mmol/L Anion Gap 9 L (12-20) BUN 7 L (9-16) mg/dL Creatinine 0.59 (0.5-1.4) mg/dL Estim Creat Clear Calc 121.9 Estimated GFR > 60 Random Glucose 85 (60-115) mg/dL Calcium 9.1 (8.4-10.2) mg/dL Total Bilirubin 0.7 (0.0-1.0) mg/dL AST 25 (5-31) U/L ALT 17 (0-31) U/L Alkaline Phosphatase 83 (39-117) U/L Total Protein 7.8 (6.5-8.0) g/dL Albumin 4.3 (3.5-5.0) g/dL Lipase 15 (8-78) U/L Beta HCG, Quant < 2 mIU/mL Urine Color Yellow Urine Appearance Clear Urine pH 5.0 (5.0-9.0) Ur Specific Williamson >= 1.030 H (1.005-1.025) Urine Protein Negative (Neg-Trace) mg/dL Urine Glucose (UA) Negative (Negative) mg/dL Urine Ketones Negative (Negative) mg/dL Urine Blood Negative (Negative) Urine Nitrite Negative (Negative) Ur Leukocyte Esterase Negative (Negative) Urine RBC 0-2 (0-2) /HPF Urine WBC 0-5 (0-5) /HPF Ur Squamous Epith Cells 3-5 (0-2) /HPF Urine Bacteria None Seen (None Seen) Hyaline Casts 0-2 (0-2) /LPF Independent Interpretation I performed an independent interpretation of an: Ultrasound and CT Scan Interpretation: pelvic US showing small right ovarian cyst ct a/p without thickening of appendix wall or surrounding fluid Radiology Impression Discussion of test interpretation with radiology: I have reviewed the radiologist's reading. Radiologist Impression: CLINICAL HISTORY: RLQ pain, guarding CT abdomen and pelvis with contrast Comparison: 10/05/2018 Findings: The lung bases are clear. The appearance of the liver suggests fatty infiltration without focal lesion. The gallbladder and solid organs are otherwise within normal limits. No renal stones. No bowel obstruction, pneumoperitoneum, or pneumatosis. There is a possible right ovarian cyst. Pelvic contents are otherwise unremarkable. Normal appendix. The bones are intact. IMPRESSION: Hepatic steatosis. This document has been electronically signed by: Romaine Hernández MD on 09/10/2024 19:12:44 EXAMINATION: US PELVIS CLINICAL INFORMATION: Right pelvic pain COMPARISON: Ultrasound pelvis 08/30/2020 TECHNIQUE: Ultrasound of the pelvis is performed using both transabdominal and transvaginal transducers along with Doppler. Transvaginal imaging is performed due to inadequate visualization transabdominally. FINDINGS: Uterus: The uterus is anteverted, anteflexed and measures 9.8 x 4.5 x 5.9 cm. The double wall endometrial thickness is 1.4 cm. The uterus is smooth in contour and has normal myometrial echogenicity. No visible fibroid. There are small nabothian cyst seen in the cervix. Adnexa: Both ovaries are visualized. There is normal color flow to the adnexa. There is no ovarian torsion. There is no pelvic ascites or fluid collection. Right ovary measures 2.2 x 2.0 x 2.4 cm. Volume 5.5 mL. There is anechoic cyst measuring 1.7 x 0.90 x 0.84 cm. There is trace free fluid adjacent to the right ovary. Previously right ovary measured 3.2 x 3.1 x 2.3 cm. Left ovary measures 3.4 x 2.0 x 2.1 cm. Volume 7.5 mL . No focal lesion seen. Previously left ovary measured 2.7 x 2.5 and 1.7 cm. US/US pelvic and transvaginal IMPRESSION: Unremarkable uterus. Small nabothian cysts in cervix. Small right ovarian cysts measuring 1.7 cm. Electronically signed by: Anish Garcia MD 09/10/2024 02:30 PM [facility] Independent Historian Clinical information obtained from an independent historian. History obtained from or confirmed by: Spouse External Record Review External record reviewed: Inpatient record Prescription Management I considered prescription management with: Pain Medication Chronic Conditions Patient?s care impacted by: Other (ovarian cysts, dysmenorrhea) Social Determinants Patient?s care significantly limited by Social Determinants of Health including: Other Social Determinant of Health Critical Care Time Critical Care Time Critical Care Time: Yes Total Critical Care Time: 40 Attestation: Critical care time in the amount of 40 minutes has been provided to the patient in terms of direct patient care, frequent reevaluation on IV morphine and dilaudid, review and interpretation of medical data and results, and management of potentially life-threatening conditions. This is all outside of any medical procedures. Discharge Plan Discharge Clinical Impression: Cyst of right ovary Patient Disposition: Home, Self-Care Instructions: Ovarian Cyst (ED) Additional Instructions: You were evaluated in the ED today for right lower abdominal pain. Your blood work is reassuring. Your urine is negative for infection. The ultrasound of your pelvis shows a small right ovarian cyst measuring 1.7 cm without evidence of ovary twisting. The CT scan of your abdomen does not demonstate appendicitis or other acute pathology. You are declining pelvic exam/ vaginal swabs at this time. I am sending an anti-inflammatory pain medication (indomethacin) to your pharmacy. Take this as needed for pain. As discussed, please follow up with your primary care provider. I have also provided you with a referral to an OBGYN. Call them to establish care. They will not call you. Return with new or worsening symptoms. In the case of an emergency call 911. Prescriptions: New indomethacin 25 mg capsule 25 mg PO TID PRN (Reason: pain (scale score 4-6)) Qty: 20 0RF Rx Instructions: administer with food or milk No Action cyclobenzaprine 10 mg tablet 10 mg PO TID PRN (Reason: muscle spasm) Qty: 20 0RF Referrals: Po,Morenita Zamorano MD [Primary Care Provider] - Axel Robles MD [Physician] - Stand Alone Forms: Work/School Release Interventions: ED Discharge Assessment Last Done: 09/10/24 19:57 Discharge Date/Time: 09/10/24 19:58 Print Language: Wolof
[2024-09-10 11:31] VITALS: BP 127/88; PULSE 83; RESP 16; TEMP 36.8; O2SAT 100; BMI 28.4
[2024-09-10 12:03] LABS: MANUAL DIFF FLAG NO
[2024-09-10 12:05] LABS: Basophils Absolute Auto 0.1 X10*3/uL (0.0-0.2); Basophils Percent Auto 0.5 % (0-2); Eosinophils Absolute Auto 0.3 X10*3/uL (0.0-0.4); Eosinophils Percent Auto 2.7 % (0-4); Hematocrit 36.1 % (37.0-47.0); Imm Gran Abs Auto 0.11 X10*3/uL (0.00-0.03); Lymphocytes Absolute Auto 2.9 X10*3/uL (1.2-4.9); Lymphocytes Percent Auto 25.4 % (20-40); Mean Corpuscular HGB Conc 33.2 g/dl (31.0-35.0); Mean Corpuscular Volume 87.2 fL (80.0-98.0); Mean Platelet Volume 10.5 fL (9.4-12.3); Monocytes Absolute Auto 0.9 X10*3/uL (0.1-1.2); Monocytes Percent Auto 7.8 % (2-11); Neutrophils Absolute Auto 7.2 x10*3/uL (2.0-8.3); Neutrophils Percent Auto 62.6 % (45-73); Platelet Count 274 X10*3/uL (160-400); Red Blood Count 4.14 X10*6/uL (4.20-5.50); Red Cell Distribution Width 15.6 % (11.0-16.0); White Blood Count 11.5 X10*3/uL (4.8-10.8)
[2024-09-10 12:27] LABS: Alanine Aminotransferase 17 U/L (0-31); Albumin Level 4.3 g/dL (3.5-5.0); Alkaline Phosphatase 83 U/L (39-117); Anion Gap 9 (12-20); Aspartate Amino Transferase 25 U/L (5-31); Bilirubin Total 0.7 mg/dL (0.0-1.0); Blood Urea Nitrogen 7 mg/dL (9-16); Calcium 9.1 mg/dL (8.4-10.2); Carbon Dioxide 22 mmol/L (22-29); Chloride 113 mmol/L (96-108); Creatinine Clr Calc Pharmacy 121.9; Estimated Glomerular Filt Rate > 60; Glucose Random 85 mg/dL (60-115); HCG Quantitative < 2 mIU/mL; Lipase 15 U/L (8-78); Potassium 4.3 mmol/L (3.3-5.1); Sodium 140 mmol/L (135-145); Total Protein 7.8 g/dL (6.5-8.0)
[2024-09-10 16:11] VITALS: BP 110/86; PULSE 79; RESP 16; TEMP 36.6; O2SAT 99
[2024-09-10] MEDS: Morphine Sulfate 4 MG/ML CARTRIDGE IVPUSH (16:37)
[2024-09-10] MEDS: iohexoL 350 MG/ML 100 ML INFUS..BTL 85 ML IV (17:26)
[2024-09-10 18:43] VITALS: BP 123/75; PULSE 80; RESP 18; TEMP 36.9; O2SAT 99
[2024-09-10 18:43] LABS: Appearance Urine Clear; Color Urine Yellow; Glucose Urine UA Negative (Negative); Leukocyte Esterase Urine Negative (Negative); Nitrite Urine Negative (Negative); Specific Gravity - Urine >= 1.030 (1.005-1.025); Urine Blood Negative (Negative); Urine Ketones Negative (Negative); Urine Protein Negative (Neg-Trace)
[2024-09-10 18:46] LABS: Bacteria Urine None Seen (None Seen); Hyaline Casts Urine 0-2 /LPF (0-2); RBC Urine 0-2 /HPF (0-2); WBC Urine 0-5 /HPF (0-5)
[2024-09-10] MEDS: HYDROmorphone HCl 1 MG/ML SYRINGE IVPUSH (18:50)
[2024-09-10] MEDS: ondansetron HCL 4 MG/2 ML VIAL IVPUSH (19:31)
[2024-09-10 19:57] VITALS: BP 123/75; PULSE 80; RESP 18; TEMP 36.9; O2SAT 99
== END 2024-09-10 19:58 | disposition home or self-care (01) ==
PROVIDERS: Physician Assistant; Emergency Provider Emergency Medicine; PCP Internal Medicine
DX: N83.201 Unspecified ovarian cyst, right side (principal); R10.2 Pelvic and perineal pain; R06.02 Shortness of breath; F17.210 Nicotine dependence, cigarettes, uncomplicated; F12.90 Cannabis use, unspecified, uncomplicated
CPT/HCPCS: 36415; 74177; 76830; 76856; 80053; 81001; 83690; 84702; 85025; 96374; 96375; 99283; 99284; J1171; J2270; J2405; Q9967

== ENCOUNTER → 2024-09-10 12:51 | Outpatient (BNV) | payer OTHER, SELFPAY | PROVIDERS: Visit Provider Radiology Diagnostic Radiology | DX: K76.0 Fatty (change of) liver, not elsewhere classified (principal); N88.8 Other specified noninflammatory disorders of cervix uteri; N83.291 Other ovarian cyst, right side | CPT/HCPCS: 74177; 76830; 76856 ==

== ENCOUNTER 2025-02-11 11:34 | Emergency (ER) | payer OTHER, SELFPAY ==
--- NOTE | ~2025-02-11 | XR_ITS ---
EXAMINATION: XR SHOULDER 2 OR MORE VIEWS RIGHT HISTORY: Shoulder pain COMPARISON: There are no prior studies available for comparison. FINDINGS: Three views of the right shoulder are submitted. Osseous mineralization is normal. There is no fracture or dislocation. The joint spaces are preserved. The soft tissues are unremarkable. XR/XR shoulder RT min 2V IMPRESSION: Unremarkable examination of the right shoulder. Electronically signed by: Dougie Stephens MD 02/11/2025 12:02 PM EDT
[2025-02-11 11:40] VITALS: BP 137/97; PULSE 95; RESP 16; TEMP 36.5; O2SAT 98; BMI 28.3
--- NOTE | 2025-02-11 11:44 | ED.EXTPRO ---
HPI - Extremity Problem General Chief complaint: Extremity Injury, Upper Stated complaint: R shoulder pain 2 weeks, no injury Time Seen by Provider: 02/11/25 11:46 Source: patient Mode of arrival: ambulatory Limitations: no limitations History of Present Illness ED Provider: Darrel Ward HPI Narrative: 44-year-old female past medical history of menorrhagia, smoker, and sebaceous cyst presents to ED for right shoulder pain for the past 2 weeks after trying to on unbuckle her bra. Patient states also she will be on power walking have been exaggerating her shoulder movements. Patient denies any blunt trauma, swelling, bruising, redness, weakness, tingling, or paralysis. Related Data Previous Rx's ?Medication ?Instructions ?Recorded cyclobenzaprine 10 mg tablet 10 mg PO TID PRN muscle spasm #20 01/02/24 tabs indomethacin 25 mg capsule 25 mg PO TID PRN pain (scale score 09/10/24 4-6) #20 caps cyclobenzaprine 10 mg tablet 10 mg PO BEDTIME PRN muscle spasm 02/11/25 #10 tabs naproxen 500 mg tablet 500 mg PO BID PRN pain #14 tabs 02/11/25 Allergies Allergy/AdvReac Type Severity Reaction Status Date / Time No Known Allergies (No Known Allergy Verified 02/11/25 11:43 Allergies*) Review of Systems Review of Systems: Shoulder pain Yes all other systems are reviewed and are negative PMFSH Past Medical History Medical History Shortness of breath on exertion Abscess of left axilla Surgical History History of tubal ligation Family History Family History Father Colon cancer Mother Asthma Stomach cancer Sister Throat cancer Social History Social History Alcohol intake: current Alcohol intake frequency: a few times a week Patient Tobacco Use Status: Current everyday Tobacco user Tobacco use type: Cigarette Cigarettes Per Day: 10 Substance Use Type: Marijuana Advance Directives: No Advance Directives Information Provided: No Do you have a plan to hurt others: No Plan Patient : No Gender identity: Female Physical Exam Vital Signs: Vital Signs: Last Vital Signs Temp 97.7 F 02/11/25 13:08 Pulse 95 02/11/25 13:08 Resp 16 02/11/25 13:08 BP 137/97 H 02/11/25 13:08 Pulse Ox 98 02/11/25 13:08 O2 Del Method Room Air 02/11/25 13:08 BMI result Body Mass Index 28.3 Const: General: cooperative, healthy appearing, comfortable, no acute distress, well developed, alert, awake and Physically active Orientation/consciousness: patient oriented x3 HEENT: Head: Yes normal to inspection, Yes No palpable skull fracture present, Yes normocephalic and Yes atraumatic Eyes: General: appearance normal, both eyes and all related structures Neck: Neck: Yes normal visual inspection, Yes full ROM, Yes no lymphadenopathy, Yes no meningeal signs, Yes trachea midline, Yes supple, No anterior neck swelling and No tender Chest: Chest palpation & inspection: normal inspection of the chest and normal palpation of entire chest wall Resp: Effort & Inspection: normal respiratory effort and able to speak in complete sentences Auscultation: clear to auscultation bilaterally Cardio: Jugular venous distension: no JVD Heart sounds: S1 normal heart sound present and S2 normal heart sound present GI: Inspection: Yes normal to inspection Palpation (GI): Soft to palpation, not firm, nontender, no guarding and not rigid : General: Yes no CVA tenderness Back/Spine/Pelvis: Back: no CVA tenderness and No back tenderness Skin: General skin exam: no rashes or lesions noted, elasticity normal and turgor normal Neuro: General: patient oriented x3, gait normal, tone normal, moves all extremities, no meningeal signs, no focal motor deficits, CN's II-XI intact bilaterally and normal sensation to monofilament Extrem: General: Yes normal to inspection, Yes full ROM and Yes capillary refill normal Shoulder/upper arm images:  1. Positive for tenderness on palpation. Negative for erythema, swelling, ecchymosis, deformity, crepitus, rash. Rest of extremity normal. Motor/neuro/vascular exam intact Psych: Appearance: grossly normal, well kempt and not disheveled Course Course Course Narrative: RME: 44 yold female presents to the ED for right shoulder pain for the past two weeks after trying to unclap bra. positive for right shoulder tendneress. no arm swelling, redness, weakness, or ecchymosis. xrays ordered Medications Administered Discontinued Medications Generic Name Dose Route Start Last Admin Trade Name Raiza PRN Reason Stop Dose Admin Ketorolac Tromethamine 30 mg 02/11/25 12:12 02/11/25 12:19 Ketorolac Tromethamine 30 Mg/Ml Vial IM 02/11/25 12:13 30 mg ONCE ONE Administration Medical Decision Making Medical Decision Making MDM Narrative: 43-year-old female presents to ED for atraumatic right shoulder pain that is worse on movement. Shoulder x-ray came back normal. History physical exam does not indicate DVT, cellulitis, osteomyelitis, arterial occlusion, compartment syndrome, necrotizing fasciitis, lymphangitis, or any other life-threatening etiology. Patient explained worrisome signs and informed to return to the ED immediately Differential Diagnosis Differential Diagnoses: The differential diagnosis associated with the presentation includes (Dislocation sprain fracture) Admission/Observation Consideration of admission/observation: Escalation of care including admission/observation considered Independent Interpretation I performed an independent interpretation of an: Plain X-Ray Independent Historian Clinical information obtained from an independent historian. History obtained from or confirmed by: Other (Patient) Prescription Management I considered prescription management with: Pain Medication Discharge Plan Discharge Clinical Impression: Shoulder strain, Shoulder pain Patient Disposition: Home, Self-Care Instructions: Muscle Strain (ED), Shoulder Pain (ED) Additional Instructions: Your shoulder x-ray came back normal. You will need to follow up with your primary care provider for referral for physical therapy and MRI. MRI may be needed to exclude muscle tear, tendon injury, or ligament injury. Return to the ED immediately for any swelling, redness, bluish black discoloration, stiffness, paralysis, weakness, or any other concerning. symptoms. Do not any other NSAIDS while taking naproxen Prescriptions: New naproxen 500 mg tablet 500 mg PO BID PRN (Reason: pain) Qty: 14 0RF cyclobenzaprine 10 mg tablet 10 mg PO BEDTIME PRN (Reason: muscle spasm) Qty: 10 0RF Rx Instructions: side effect is drowsiness. Do not take while driving or at work No Action indomethacin 25 mg capsule 25 mg PO TID PRN (Reason: pain (scale score 4-6)) Qty: 20 0RF Rx Instructions: administer with food or milk cyclobenzaprine 10 mg tablet 10 mg PO TID PRN (Reason: muscle spasm) Qty: 20 0RF Referrals: Po,Morenita Zamorano MD [Primary Care Provider, Internal Medicine] - 2 days Referral Note: Shoulder pain heard popping sound. May need MRI Clinical Impression: Shoulder pain; Shoulder strain Stand Alone Forms: Work/School Release Interventions: ED Discharge Assessment Last Done: 02/11/25 13:08 Discharge Date/Time: 02/11/25 13:08 Print Language: Citizen [place]
[2025-02-11 13:08] VITALS: BP 137/97; PULSE 95; RESP 16; TEMP 36.5; O2SAT 98
== END 2025-02-11 13:08 | disposition home or self-care (01) ==
PROVIDERS: Emergency Provider Emergency Medicine; PCP Internal Medicine
DX: S46.911A Strain of unspecified muscle, fascia and tendon at shoulder and upper arm level, right arm, initial encounter (principal); M25.511 Pain in right shoulder; X58.XXXA Exposure to other specified factors, initial encounter; Y93.9 Activity, unspecified; Y92.9 Unspecified place or not applicable; Y99.8 Other external cause status; F17.210 Nicotine dependence, cigarettes, uncomplicated
CPT/HCPCS: 73030; 96372; 99283; 99284; J1885

== ENCOUNTER → 2025-02-11 11:44 | Outpatient (BNV) | payer OTHER, SELFPAY | PROVIDERS: Emergency Provider Emergency Medicine; PCP Internal Medicine; Visit Provider Radiology Diagnostic Radiology | DX: M25.511 Pain in right shoulder (principal) | CPT/HCPCS: 73030 ==

== ENCOUNTER 2025-02-16 10:53 | Emergency (ER) | payer OTHER, SELFPAY ==
[2025-02-16 10:56] VITALS: BP 104/77; PULSE 104; RESP 18; TEMP 36.3; O2SAT 100; BMI 28.3
--- NOTE | 2025-02-16 11:30 | ED_ITS ---
HPI - Extremity Problem General Chief complaint: Extremity Injury, Upper Stated complaint: r shoulder pain Time Seen by Provider: 02/16/25 11:30 Source: patient Mode of arrival: ambulatory Limitations: no limitations History of Present Illness ED Provider: Darrel Ward HPI Narrative: 44 yold female presents to the ED seeking MRI for right shoulder pain. Patient recently diagnosed with muscle strain. patient states no new trauma. patient denies any swelling, redness, fever, chills, ecchymosis, weakness, tingling, or rash. Related Data Previous Rx's ?Medication ?Instructions ?Recorded cyclobenzaprine 10 mg tablet 10 mg PO TID PRN muscle s pasm #20 01/02/24 tabs indomethacin 25 mg capsule 25 mg PO TID PRN pain (scal e score 09/10/24 4-6) #20 caps cyclobenzaprine 10 mg tablet 10 mg PO BEDTIME PRN musc le spasm 02/11/25 #10 tabs naproxen 500 mg tablet 500 mg PO BID PRN pain #14 t abs 02/11/25 Allergies Allergy/AdvReac Type Severity Reaction Status Date / Time No Known Allergies (No Known Allergy Verified 02/16/25 10:59 Allergies*) Review of Systems Review of Systems: right shoulder pain Yes all other systems are reviewed and are negative [facility] Past Medical History Medical History Shortness of breath on exertion Abscess of left axilla Surgical History History of tubal ligation Family History Family History Father Colon cancer Mother Asthma Stomach cancer Sister Throat cancer Social History Social History Alcohol intake: current Alcohol intake frequency: a few times a week Patient Tobacco Use Status: Current everyday Tobacco user Tobacco use type: Cigarette Cigarettes Per Day: 10 Substance Use Type: Marijuana Gender identity: Female Physical Exam Vital Signs: Vital Signs: Last Vital Signs Temp 98.0 F 02/16/25 11:50 Pulse 99 02/16/25 11:50 Resp 18 02/16/25 11:50 BP 108/76 02/16/25 11:50 Pulse Ox 100 07/08/25 11:50 O2 Del Method Room Air 02/16/25 11:50 BMI result Body Mass Index 28.3 Const: General: cooperative, healthy appearing, comfortable, no acute distress, well developed, alert, awake and Physically active Orienta tion/consciousness: patient oriented x3 HEENT: Head: Yes normal to inspection, Yes No palpable skull fracture present, Yes normocephalic, Yes atraumatic and No abrasion Eyes: General: appearance normal, both eyes and all related structures Neck: Neck: Yes normal visual inspection, Yes full ROM, Yes no lymphadenopathy, Yes no meningeal signs, Yes trachea midline, Yes supple, No anterior neck swelling and No tender Chest: Chest palpation & inspection: normal inspection of the chest and normal palpation of entire chest wall Resp: Effort & Inspection: normal respiratory effort and able to speak in complete sentences Auscultation: clear to auscultation bilaterally Cardio: Jugular venous distension: no JVD Heart sounds: S1 normal heart sound present and S2 normal heart sound present GI: Palpation (GI): Soft to palpation, not firm, nontender, no guarding and not rigid : General: Yes no CVA tenderness Back/Spine/Pelvis: Back: no CVA tenderness and No back tenderness Skin: General skin exam: no rashes or lesions noted, elasticity normal and turgor normal Neuro: General: patient oriented x3, gait normal, tone normal, moves all ext remities, Normal light touch and pain sensation, no meningeal signs, no focal motor deficits, CN's II-XI intact bilaterally and normal sensation to monofilament Extrem: General: Yes normal to inspection, Yes full ROM and Yes capillary refill normal Psych: Appearance: grossly normal, well kempt and not disheveled Medical Decision Making Medical Decision Making MDM Narrative: 43-year-old female presents to ED for right shoulder pain that is worse on movement. Patient was evaluated last Saturday. Patient states pain been going on for the past 2-3 weeks after trying to on buccal her bra strap and heard a pop in the right shoulder. X-ray was normal. Presently no signs of dislocation, DVT, cellulitis, arterial occlusion, compartment syndrome, carotid dissection, or any other life-threatening etiology. 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 Patient given info for Orthopedic surgery to call for expedited appointment and possible MRI. Differential Diagnosis Differential Diagnoses: The differential diagnosis associated with the presentation includes (Shoulder strain) Admission/Observation Consideration of admission/observation: Escalation of care including admission/observation considered Independent Historian Clinical information obtained from an independent historian. History obtained from or confirmed by: Other (Patient) Prescription Management I considered prescription management with: Pain Medication Discharge Plan Discharge Clinical Impression: Strain of shoulder Patient Disposition: Home, Self-Care Instructions: Muscle Strain (ED), Rotator Cuff Injury (ED), Rotator Cuff Injury Exercises (DC) Additional Instructions: Recommend calling Orthopedic surgery for possible earlier appointment, rehab, and MRI. Return to the ED for any shoulder stiffness, swelling, redness, bluish black discoloration, weakness, dizziness, neck stiffness, slurred speech, facial droop, fever, chills, rash, or any other concerning symptoms. Recommend continuing pain meds your prescribed. Prescriptions: No Action indomethacin 25 mg capsule 25 mg PO TID PRN (Reason: pain (scale score 4-6)) Qty: 20 0RF Rx Instructions: administer with food or milk naproxen 500 mg tablet 500 mg PO BID PRN (Reason: pain) Qty: 14 0RF cyclobenzaprine 10 mg tablet 10 mg PO BEDTIME PRN (Reason: muscle spasm) Qty: 10 0RF Rx Instructions: side effect is drowsiness. Do not take while driving or at work cyclobenzaprine 10 mg tablet 10 mg PO TID PRN (Reason: muscle spasm) Qty: 20 0RF Referrals: [facility] [place] [facility] [place] [facility] [Provider Group, Orthopedics] - 2 days Referral Note: Shoulder sprain heard a pop. Possible rotator cuff injury. May need rehab an MRI Clinical Impression: Strain of shoulder Stand Alone Forms: Work/School Release Interventions: ED Discharge Assessment Last Done: 02/16/25 11:50 Discharge Date/Time: 02/16/25 11:50 Print Language: [place]
[2025-02-16 11:50] VITALS: BP 108/76; PULSE 99; RESP 18; TEMP 36.7; O2SAT 100
== END 2025-02-16 11:50 | disposition home or self-care (01) ==
LOC: HO.ED 11:44
PROVIDERS: Emergency Provider Emergency Medicine Emergency Medical Services
DX: S46.911A Strain of unspecified muscle, fascia and tendon at shoulder and upper arm level, right arm, initial encounter (principal); X58.XXXA Exposure to other specified factors, initial encounter; M25.511 Pain in right shoulder; Y93.9 Activity, unspecified; Y92.9 Unspecified place or not applicable; Y99.9 Unspecified external cause status
CPT/HCPCS: 99282

== ENCOUNTER 2025-05-04 10:36 | Outpatient (AMB) | payer OTHER, SELFPAY ==
--- NOTE | 2025-05-04 10:44 | A.OFFVIS_ITS ---
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 Patient reports ongoing pain for about 4 - 5 months. She states that her pain is on the lateral aspect of the shoulder and it moves down her arm making her finger tingling. She noticed that her right side of her face and neck felt stiff, also her toe was having pain too. Patient notices that her pain is worse when she is lifting her arm, lifting anything over head, getting dressed. She has tried a muscle relaxer that was given at the ED. IMPRESSION: Unremarkable examination of the right shoulder. 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 Nunez is a 44-year-old right-hand dominant female who presents to the office today for evaluation of right shoulder pain. She reports the pain has been present for the past 4-5 months she denies any injury or trauma. She reports that she has pain located on the lateral aspect of the shoulder it moves down her arm into her hand. Additionally, her pain also radiates up to the face and neck. She reports a stiff neck sensation with muscle spasms. She endorses numbness and tingling in the right hand. Symptoms worsen when she is lifting her arm, attempting any overhead motion and performing ADLs such as getting dressed. She has tried cyclobenzaprine that was provided to her by the emergency department with little relief. 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 Abduction to 100 degrees. Able to reach back pocket. Pain with cross-body reach. Negative drop arm. 4-5 strength with empty can with pain. Reports numbness and tingling throughout the entire right upper extremity intermittently. Denies dense numbness. Psych Appearance: grossly normal Mental Status: mental status grossly normal Attitude: cooperative Assessment & Plan Assessment & Plan (1) Cervical radiculopathy: Code(s): M54.12 - Radiculopathy, cervical region Category: Medical (2) Painful arc syndrome of right shoulder: Code(s): M75.101 - Unspecified rotator cuff tear or rupture of right shoulder, not specified as traumatic Category: Medical Plan Ms. Nunez is a 44-year-old right-hand dominant female who presents to the office today for evaluation of right shoulder pain. She reports the pain has been present for the past 4-5 months she denies any injury or trauma. She reports that she has pain located on the lateral aspect of the shoulder it moves down he r arm into her hand. Additionally, her pain also radiates up to the face and neck. She reports a stiff neck sensation with muscle spasms. She endorses numbness and tingling in the right hand. Symptoms worsen when she is lifting her arm, attempting any overhead motion and performing ADLs such as getting dressed. She has tried cyclobenzaprine that was provided to her by the emergency department with little relief. While in the office today, we discussed the role of further imaging modalities and neurological evaluation. I have placed an MRI to further evaluate the integrity of the right shoulder and surrounding structures. Additionally, I have placed an order for an EMG to be obtained as the patient does endorse numbness and tingling throughout the entire right upper extremity as well as pain that radiates into the neck and the right side of her face. Patient will follow up after the EMG is obtained with Dr. Walsh for further evaluation of C- spine involvement. I will reach out to the patient after the MRIs obtained to discuss the findings as well as the next step in the treatment process. X x-rays that were obtained on 02/11/2025 of the right shoulder were negative for any acute fracture or dislocation. Coding Level of Care Code New Pt Level 4 (94318) Diagnoses Cervical radiculopathy M54.12 Painful arc syndrome of right shoulder M75.101
== END 2025-05-04 11:28 | disposition home or self-care (01) ==
LOC: HO.HOS 10:36
PROVIDERS: Visit Provider Physician Assistant
DX: M54.12 Radiculopathy, cervical region (principal); M75.101 Unspecified rotator cuff tear or rupture of right shoulder, not specified as traumatic
CPT/HCPCS: 99204

== ENCOUNTER → 2025-05-04 10:36 | Outpatient (BNVA) | payer OTHER, SELFPAY | PROVIDERS: Visit Provider Physician Assistant | DX: M54.12 Radiculopathy, cervical region (principal); M75.101 Unspecified rotator cuff tear or rupture of right shoulder, not specified as traumatic | CPT/HCPCS: 99202 ==